=== PATIENT | male | born 1955 | race Two or more races ===

== ENCOUNTER 2017-01-10 21:02 | Inpatient (IN) | payer SELFPAY ==
[~2017-01-10] VITALS: Ht 172.7 cm; Wt 72.6 kg
[2017-01-10 21:23] VITALS: BP 103/62
[2017-01-10 22:12] LABS: ALANINE AMINOTRANSFERASE 8 U/L (3-41); ALBUMIN/GLOBULIN RATIO 1.2 (1.0-2.7); ANION GAP 14 (5-15); ASPARTATE AMINO TRANSFERASE 12 U/L (5-40); CALCIUM 8.9 mg/dL (8.6-10.2); CARBON DIOXIDE 28 mEQ/L (20-30); CHLORIDE 94 mEQ/L (98-107); CREATININE 1.2 mg/dL (0.7-1.2); GLOMERULAR FILTRATION RATE > 60 mL/min (>60); HEMOLYSIS 5; POTASSIUM 4.2 mEQ/L (3.4-4.9); SODIUM 136 mEQ/L (135-145); TOTAL PROTEIN 6.5 g/dL (6.6-8.7); TROPONIN I < 0.30 ng/mL (<=0.30)
[2017-01-10 22:14] LABS: APPEARANCE,URINE CLEAR; BASOPHILS % (AUTO) 0.7 % (0.0-2.0); EOSINOPHILS % (AUTO) 0.8 % (0.0-3.0); KETONES,URINE NEGATIVE (NEGATIVE); LEUKOCYTE ESTERASE ,URINE 1+ (NEGATIVE); LYMPHOCYTES % (AUTO) 13.4 % (20.0-45.0); MEAN CORPUSCULAR HEMOGLOBIN 31.8 PG (27.0-31.0); MEAN CORPUSCULAR HGB CONC 33.9 G/DL (32.0-36.0); MEAN CORPUSCULAR VOLUME 94 FL (80-99); MEAN PLATELET VOLUME 6.1 FL (6.5-10.1); NEUTROPHILS % (AUTO) 79.2 % (45.0-75.0); NITRITE,URINE NEGATIVE (NEGATIVE); PH,URINE 6 (4.5-8.0); PLATELET COUNT 270 K/UL (150-450); PROTEIN,URINE 1+ (NEGATIVE); RED BLOOD COUNT 4.97 M/UL (4.70-6.10); UROBILINOGEN,URINE 4 MG/DL (0.0-1.0); WHITE BLOOD COUNT 13.1 K/UL (4.8-10.8)
[2017-01-10] MEDS ORDERED: Tylenol #3 tab (300mg/30mg) ORAL ONE (22:15)
[2017-01-10 22:22] LABS: CKMB < 1.5 ng/mL (< 6.7)
[2017-01-10 22:25] LABS: AMORPHOUS SEDIMENT,UR FEW /LPF; BACTERIA,URINE FEW /HPF; MUCUS,URINE FEW /LPF (NONE/OCC)
[2017-01-10 22:28] VITALS: BP 117/70
[2017-01-10] MEDS ORDERED: Azithromycin Inj IV ONE (22:36)
[2017-01-10] MEDS ORDERED: Solu-MEDROL 125mg Inj IVP ONE (22:45)
[2017-01-10] MEDS ORDERED: Azithromycin 500 MG in NS 275 ML IV ONE (22:45)
[2017-01-10] MEDS: Ipratropium 0.02% Inh Soln 2.5ml UD HHN SCH ×2 (22:48→22:49)
[2017-01-10] MEDS: Albuterol ud Inhalation HHN SCH ×2 (22:48→22:49)
[2017-01-10 23:00] VITALS: BP 111/68
--- NOTE | 2017-01-10 23:33 | Emergency Room Report ---
History of Present Illness General Chief Complaint: Syncope Source: Patient Present Illness HPI 61YOM + "long time smoker" with 2 weeks of cough and subjective SOB. No history of asthma, COPD. Does not have PMD. Denies fever/chills, myalgias, chest pain. Didnt take any OTC meds. Denies known PMHx or COPD history. Allergies: Coded Allergies: No Known Allergies (Unverified , 01/10/17) Patient History Past Medical History: none Past Surgical History: none Pertinent Family History: none Social History: Reports: smoking Immunizations: UTD Reviewed Nursing Documentation: PMH: Agreed, PSxH: Agreed Nursing Documentation-PMH Past Medical History: No Stated History Physical Exam Vital Signs Date Time Temp Pulse Resp B/P Pulse Ox O2 Delivery O2 Flow Rate FiO2 01/10/17 21:06 79 18 103/62 97 Room Air 01/10/17 21:23 98.7 Sp02 EP Interpretation: reviewed, normal General Appearance: normal inspection, well appearing, alert, GCS 15, non-toxic , mild distress, other - Looks ill, repeatedly coughing Head: normocephalic, atraumatic Eyes: bilateral eye EOMI, bilateral eye PERRL ENT: normal ENT inspection, hearing grossly normal, normal voice Neck: normal inspection, full range of motion, supple, no meningismus, no bony tend Respiratory: normal inspection, lungs clear, normal breath sounds, no respiratory distress, no retraction, no accessory muscle use, speaking full sentences, wheezing Cardiovascular #1: regular rate, rhythm, no edema Gastrointestinal: normal inspection, normal bowel sounds, non tender, soft, no guarding, no hernia Genitourinary: no CVA tenderness Musculoskeletal: normal inspection, back normal, normal range of motion, Lyle' s Sign negative Neurologic: normal inspection, alert, oriented x3, responsive, 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, motor strength/tone normal, speech normal Psychiatric: normal inspection, judgement/insight normal, mood/affect normal Skin: normal inspection, normal color, no rash Lymphatic: normal inspection Medical Decision Making Diagnostic Impression: Primary Impression: Hematuria Additional Impression: COPD with acute exacerbation ER Course 61YOM with 2 weeks cough - Significant pack year history smoker - 2 weeks symptoms - Significant wheezing on exam - Likely new onset COPD exac vs bronchitis - Improved with duonebs, steroids, IV Azithro - CXR does not show acute PNA - Blood Cx pending Endorsed to Dr Romero For tele admit at 1145pm EKG Diagnostic Results Rate: normal Rhythm: NSR ST Segments: no acute changes ASA given to the pt in ED: No Rhythm Strip Diag. Results EP Interpretation: yes Rate: 84 Rhythm: NSR, no PVC's, no ectopy Chest X-Ray Diagnostic Results EP Interpretation: Yes Findings: no consolidation, no effusion, no pneumothorax, no acute cardiopulmonary disease Number of Views: 1 Last Vital Signs Date Time Temp Pulse Resp B/P Pulse Ox O2 Delivery O2 Flow Rate FiO2 01/10/17 23:00 78 28 111/68 100 Room Air 01/10/17 22:27 98.7 Status: improved Disposition: ADMITTED INPATIENT Condition: Serious Referrals: NOT CHOSEN ALYSSA/,REFERRING (PCP) ALFRED BAZAN M.D. January 10, 2017 23:33
[2017-01-11] MEDS ORDERED: DuoNeb 0.5-3(2.5)mg/3ml neb HHN PRN
[2017-01-11] MEDS ORDERED: Promethazine/Codeine 5ml UD ORAL PRN
[2017-01-11] MEDS ORDERED: Ketorolac 30mg Inj IV PRN
[2017-01-11] MEDS ORDERED: Nitroglycerin Subl 0.4mg tab (Bottle Of 25) SL PRN
[2017-01-11] MEDS ORDERED: LORazepam Inj 2mg/ml 1ml IV PRN
[2017-01-11] MEDS ORDERED: Morphine Sulfate 2mg/ml Inj IVP PRN
[2017-01-11] MEDS ORDERED: Zosyn 3.375gm inj ONE (01:45)
[2017-01-11] MEDS: Solu-MEDROL 125mg Inj IV SCH ×4 (02:28→17:24)
[2017-01-11] MEDS: Zoysn 3.37gm in D5W 110ml IVPB SCH ×3 (02:29→16:47)
[2017-01-11 04:00] VITALS: BP 107/58
[2017-01-11] MEDS ORDERED: Piperacillin/Tazobactam 2.25 GM in D5W 55 ML IV SCH (06:00)
[2017-01-11 08:00] VITALS: BP 120/65
[2017-01-11] MEDS: Theophylline ER 100mg ORAL SCH ×2 (09:36→21:28)
[2017-01-11] MEDS: Heparin 5000 units/ml inj SUBQ SCH ×2 (09:37→21:28)
--- NOTE | 2017-01-11 10:58 | Diagnostic Imaging Report ---
Indication: SOB, cough Technique: One view of the chest Comparison: none Findings: There is some atelectasis or scarring at the left lung base. Remaining lungs and pleural spaces are clear. Heart size is normal. Impression: Left basilar atelectasis or scarring. Correlate with clinical findings
--- NOTE | 2017-01-11 11:51 | History and Physical ---
History of Present Illness General Date patient seen: January 11, 2017 Reason for Hospitalization: Syncope Present Illness HPI 61year old male with hx of COPD, smoker, presented with CC of 2 weeks of cough and subjective SOB. Denies fever/chills, myalgias, chest pain. . Denies known PMHx or COPD history. Pt is admitted for SOB and acute exacerbation of COPD, Bronchitis. Allergies: Coded Allergies: No Known Allergies (Unverified , 01/10/17) Patient History Healthcare decision maker pt A&Ox4 Resuscitation status Full Code Advanced Directive on File No Physical Exam General Appearance: WD/WN Lines, tubes and drains: peripheral, endotracheal tube HEENT: normocephalic, atraumatic Respiratory/Chest: crackles/rales Cardiovascular/Chest: normal peripheral pulses, normal rate Genitourinary/Rectal: normal genital exam Last 24 Hour Vital Signs Date Time Temp Pulse Resp B/P Pulse Ox O2 Delivery O2 Flow Rate FiO2 01/11/17 11:31 72 01/11/17 08:00 66 01/11/17 08:00 97.0 95 18 120/65 98 Room Air 01/11/17 07:45 75 18 Room Air 01/11/17 04:00 88 01/11/17 04:00 97.9 83 21 107/58 94 Room Air 01/11/17 00:04 98.7 78 18 111/68 100 Room Air 01/10/17 23:40 96 18 100 Room Air 01/10/17 23:00 78 28 111/68 100 Room Air 01/10/17 22:51 86 18 96 Room Air 01/10/17 22:50 85 18 Room Air 01/10/17 22:28 75 17 117/70 99 Room Air 01/10/17 22:27 98.7 01/10/17 21:23 98.7 79 18 103/62 97 Room Air 01/10/17 21:06 79 18 103/62 97 Room Air Intake and Output 01/10/17 01/11/17 19:00 07:00 Intake Total 585.000 ml Balance 585.000 ml Intake Oral 200 ml IV Total 385.000 ml # Voids 2 Laboratory Tests Test 01/10/17 21:40 White Blood Count 13.1 K/UL (4.8-10.8) H Red Blood Count 4.97 M/UL (4.70-6.10) Hemoglobin 15.8 G/DL (14.2-18.0) Hematocrit 46.5 % (42.0-52.0) Mean Corpuscular Volume 94 FL (80-99) Mean Corpuscular Hemoglobin 31.8 PG (27.0-31.0) H Mean Corpuscular Hemoglobin Concent 33.9 G/DL (32.0-36.0) Red Cell Distribution Width 11.0 % (11.6-14.8) L Platelet Count 270 K/UL (150-450) Mean Platelet Volume 6.1 FL (6.5-10.1) L Neutrophils (%) (Auto) 79.2 % (45.0-75.0) H Lymphocytes (%) (Auto) 13.4 % (20.0-45.0) L Monocytes (%) (Auto) 6.0 % (1.0-10.0) Eosinophils (%) (Auto) 0.8 % (0.0-3.0) Basophils (%) (Auto) 0.7 % (0.0-2.0) Urine Color Yellow Urine Appearance Clear Urine pH 6 (4.5-8.0) Urine Specific Elliott 1.020 (1.005-1.035) Urine Protein 1+ (NEGATIVE) H Urine Glucose (UA) Negative (NEGATIVE) Urine Ketones Negative (NEGATIVE) Urine Occult Blood 2+ (NEGATIVE) H Urine Nitrite Negative (NEGATIVE) Urine Bilirubin Negative (NEGATIVE) Urine Urobilinogen 4 MG/DL (0.0-1.0) H Urine Leukocyte Esterase 1+ (NEGATIVE) H Urine RBC 5-10 /HPF (0 - 0) H Urine WBC 2-4 /HPF (0 - 0) Urine Squamous Epithelial Cells None /LPF (NONE/OCC) Urine Amorphous Sediment Few /LPF (NONE) H Urine Bacteria Few /HPF (NONE) Urine Mucus Few /LPF (NONE/OCC) H Sodium Level 136 mEQ/L (135-145) Potassium Level 4.2 mEQ/L (3.4-4.9) Chloride Level 94 mEQ/L (98-107) L Carbon Dioxide Level 28 mEQ/L (20-30) Anion Gap 14 (5-15) Blood Urea Nitrogen 15 mg/dL (7-23) Creatinine 1.2 mg/dL (0.7-1.2) Estimat Glomerular Filtration Rate > 60 mL/min (>60) Glucose Level 131 mg/dL (74-106) H Calcium Level 8.9 mg/dL (8.6-10.2) Total Bilirubin 0.5 mg/dL (0.0-1.2) Aspartate Amino Transf (AST/SGOT) 12 U/L (5-40) Alanine Aminotransferase (ALT/SGPT) 8 U/L (3-41) Alkaline Phosphatase 61 U/L (40-129) Total Creatine Kinase 65 U/L (38-174) Creatine Kinase MB < 1.5 ng/mL (< 6.7) Creatine Kinase MB Relative Index Troponin I < 0.30 ng/mL (<=0.30) Pro-B-Type Natriuretic Peptide 179 pg/mL (0-125) H Total Protein 6.5 g/dL (6.6-8.7) L Albumin 3.6 g/dL (3.5-5.2) Globulin 2.9 g/dL Albumin/Globulin Ratio 1.2 (1.0-2.7) Urine Opiates Screen Negative (NEGATIVE) Urine Barbiturates Screen Negative (NEGATIVE) Phencyclidine (PCP) Screen Negative (NEGATIVE) Urine Amphetamines Screen Negative (NEGATIVE) Urine Benzodiazepines Screen Negative (NEGATIVE) Urine Cocaine Screen Negative (NEGATIVE) Urine Marijuana (THC) Screen Negative (NEGATIVE) Height (Feet): 5 Height (Inches): 8.00 Weight (Pounds): 160 Medications Current Medications Medications (Trade) Dose Ordered Sig/Steph Route PRN Reason Start Time Stop Time Status Last Admin Dose Admin Albuterol/ Ipratropium (DuoNeb 0.5-3(2.5)mg/3ml) 3 ml Q4H PRN HHN dyspnea 01/11/17 00:00 01/16/17 00:00 Dextrose STAT PRN IV Hypoglycemia 01/11/17 00:00 02/10/17 00:00 Heparin Sodium (Porcine) (Heparin 5000 units/ml) 5,000 units EVERY 12 HOURS SUBQ 01/11/17 09:00 02/10/17 08:59 01/11/17 09:37 Ketorolac Tromethamine (Toradol 30mg) 30 mg Q8H PRN IV moderate pain 4-6 01/11/17 00:00 01/16/17 00:00 Lorazepam (Ativan 2mg/ml 1ml) 0.5 mg Q4H PRN IV For Anxiety 01/11/17 00:00 01/18/17 00:00 Methylprednisolone Sodium Succinate (Solu-MEDROL) 60 mg EVERY 6 HOURS IV 01/11/17 00:00 02/10/17 00:00 01/11/17 11:41 Morphine Sulfate (Morphine Sulfate) 2 mg Q4H PRN IVP severe pain 7-10 01/11/17 00:00 01/18/17 00:00 Nitroglycerin (Ntg) 0.4 mg Q5M X 3 DOSES PRN SL Prn Chest Pain 01/11/17 00:00 02/10/17 00:00 Ondansetron HCl (Zofran) 4 mg Q6H PRN IVP Nausea & Vomiting 01/11/17 00:00 02/10/17 00:00 Piperacillin Sod/ Tazobactam Sod/ Dextrose (Zosyn/D5W) 110 ml @ 27.5 mls/hr Q8H IVPB 01/11/17 00:30 01/18/17 00:29 01/11/17 09:36 Promethazine HCl/ Codeine (Phenergan with Codeine) 5 ml Q6H PRN ORAL cough 01/11/17 00:00 02/10/17 00:00 Temazepam (Restoril) 15 mg HSPRN PRN ORAL Insomnia 01/11/17 00:00 01/18/17 00:00 Theophylline (Adonis-Dur) 100 mg EVERY 12 HOURS ORAL 01/11/17 09:00 02/10/17 08:59 01/11/17 09:36 Assessment/Plan Problem List: (1) COPD with acute exacerbation ICD Codes: J44.1 - Chronic obstructive pulmonary disease with (acute) exacerbation SNOMED: 162267817 Assessment/Plan iv steroids IV antibiotics resiratory treatment TRISH GOMEZ January 11, 2017 11:51
[2017-01-11 12:00] VITALS: BP 105/64
[2017-01-11 16:00] VITALS: BP 100/59
[2017-01-11 20:00] VITALS: BP 115/69
[2017-01-12] VITALS: BP 112/56
[2017-01-12] MEDS: Zoysn 3.37gm in D5W 110ml IVPB SCH (00:29)
[2017-01-12] MEDS: Solu-MEDROL 125mg Inj IV SCH ×2 (00:31→06:10)
[2017-01-12 04:31] VITALS: BP 100/44
[2017-01-12 06:18] LABS: MEAN CORPUSCULAR HEMOGLOBIN 32.8 PG (27.0-31.0); MEAN CORPUSCULAR HGB CONC 35.4 G/DL (32.0-36.0); MEAN CORPUSCULAR VOLUME 93 FL (80-99); MEAN PLATELET VOLUME 6.5 FL (6.5-10.1); PLATELET COUNT 277 K/UL (150-450); RED BLOOD COUNT 4.56 M/UL (4.70-6.10); RED CELL DISTRIBUTION WIDTH 10.8 % (11.6-14.8)
[2017-01-12] MEDS ORDERED: Nitroglycerin Subl 0.4mg tab (Bottle Of 25) SL PRN (06:30)
[2017-01-12 06:33] LABS: ALANINE AMINOTRANSFERASE 9 U/L (3-41); ALBUMIN/GLOBULIN RATIO 1.2 (1.0-2.7); ANION GAP 13 (5-15); ASPARTATE AMINO TRANSFERASE 14 U/L (5-40); CALCIUM 9.4 mg/dL (8.6-10.2); CARBON DIOXIDE 27 mEQ/L (20-30); CHLORIDE 100 mEQ/L (98-107); CREATININE 1.1 mg/dL (0.7-1.2); GLOMERULAR FILTRATION RATE > 60 mL/min (>60); HEMOLYSIS 3; MAGNESIUM 2.1 mg/dL (1.7-2.5); PHOSPHORUS 2.8 mg/dL (2.5-4.8); POTASSIUM 4.8 mEQ/L (3.4-4.9); SODIUM 140 mEQ/L (135-145); TOTAL PROTEIN 6.7 g/dL (6.6-8.7)
[2017-01-12] MEDS ORDERED: DuoNeb 0.5-3(2.5)mg/3ml neb HHN PRN (06:53)
[2017-01-12] MEDS ORDERED: LORazepam Inj 2mg/ml 1ml IV PRN (06:54)
[2017-01-12] MEDS ORDERED: Ketorolac 30mg Inj IV PRN (06:54)
[2017-01-12] MEDS ORDERED: Promethazine/Codeine 5ml UD ORAL PRN (06:55)
[2017-01-12] MEDS ORDERED: Morphine Sulfate 2mg/ml Inj IVP PRN (06:55)
[2017-01-12 08:05] VITALS: BP 95/59
[2017-01-12 08:30] LABS: BAND NEUTROPHILS % (MANUAL) 0 % (0-8); BASOPHILS % (MANUAL) 0 % (0-2); EOSINOPHILS % (MANUAL) 0 % (0-3); LYMPHOCYTES % (MANUAL) 7 % (20-45); NEUTROPHILS % (MANUAL) 92 % (45-75); PLATELET ESTIMATE ADEQUATE; PLATELET MORPHOLOGY NORMAL; TOTAL CELLS COUNTED 100
[2017-01-12] MEDS ORDERED: Piperacillin/Tazobactam 3.375 GM in D5W 110 ML IVPB SCH (08:30)
[2017-01-12] MEDS ORDERED: Theophylline ER 100mg ORAL SCH (09:00)
[2017-01-12] MEDS ORDERED: Heparin 5000 units/ml inj SUBQ SCH (09:00)
[2017-01-12 11:35] VITALS: BP 97/54
[2017-01-12] MEDS ORDERED: Solu-MEDROL 125mg Inj IV SCH (12:00)
--- NOTE | 2017-01-12 14:50 | Pulmonology Progress Note ---
Assessment/Plan Problems: (1) COPD with acute exacerbation Assessment/Plan improivng IV antibiotics IV steroids improving dc home with oral abx and steroids Subjective ROS Limited/Unobtainable: No Interval Events: improving Allergies: Coded Allergies: No Known Allergies (Unverified , 01/10/17) Objective Last 24 Hour Vital Signs Date Time Temp Pulse Resp B/P Pulse Ox O2 Delivery O2 Flow Rate FiO2 01/12/17 11:35 97.2 72 20 97/54 99 Room Air 01/12/17 08:05 98.3 59 23 95/59 96 Room Air 01/12/17 04:31 97.5 62 20 100/44 90 01/12/17 00:00 97.7 71 18 112/56 97 Room Air 21 01/11/17 23:59 76 01/11/17 20:00 97.7 82 16 115/69 94 Room Air 01/11/17 19:55 65 01/11/17 19:30 78 18 Room Air 21 01/11/17 16:00 97.7 68 18 100/59 94 Room Air 01/11/17 16:00 66 Intake and Output 01/11/17 01/12/17 19:00 07:00 Intake Total 171.0 ml 298.8 ml Balance 171.0 ml 298.8 ml Intake Oral 120 ml IV Total 171.0 ml 178.8 ml # Voids 2 General Appearance: WD/WN Respiratory/Chest: chest wall non-tender, lungs clear Cardiovascular: normal peripheral pulses, normal rate Abdomen: soft, non tender, no organomegaly Extremities: no cyanosis, no clubbing Skin: no lesions Microbiology Date/Time Source Procedure Growth Status 01/10/17 23:00 Blood Blood Culture - Preliminary NO GROWTH AFTER 24 HOURS Resulted 01/10/17 22:40 Blood Blood Culture - Preliminary NO GROWTH AFTER 24 HOURS Resulted 01/11/17 10:00 Sputum Gram Stain - Final Resulted 01/11/17 10:00 Sputum Sputum Culture - Preliminary Resulted Laboratory Tests 01/12/17 05:50: White Blood Count 24.0#*H, Red Blood Count 4.56L, Hemoglobin 15.0, Hematocrit 42.2, Mean Corpuscular Volume 93, Mean Corpuscular Hemoglobin 32.8H, Mean Corpuscular Hemoglobin Concent 35.4, Red Cell Distribution Width 10.8L, Platelet Count 277, Mean Platelet Volume 6.5, Neutrophils (%) (Auto) , Lymphocytes (%) (Auto) , Monocytes (%) (Auto) , Eosinophils (%) (Auto) , Basophils (%) (Auto) , Differential Total Cells Counted 100, Neutrophils % ( Manual) 92H, Lymphocytes % (Manual) 7L, Monocytes % (Manual) 1, Eosinophils % ( Manual) 0, Basophils % (Manual) 0, Band Neutrophils 0, Platelet Estimate Adequate, Platelet Morphology Normal, Red Blood Cell Morphology Normal, Sodium Level 140, Potassium Level 4.8, Chloride Level 100, Carbon Dioxide Level 27, Anion Gap 13, Blood Urea Nitrogen 21, Creatinine 1.1, Estimat Glomerular Filtration Rate > 60, Glucose Level 163H, Calcium Level 9.4, Phosphorus Level 2.8, Magnesium Level 2.1, Total Bilirubin < 0.2, Aspartate Amino Transf (AST/ SGOT) 14, Alanine Aminotransferase (ALT/SGPT) 9, Alkaline Phosphatase 68, Total Protein 6.7, Albumin 3.7, Globulin 3.0, Albumin/Globulin Ratio 1.2 Current Medications Medications (Trade) Dose Ordered Sig/Steph Route PRN Reason Start Time Stop Time Status Last Admin Dose Admin Albuterol/ Ipratropium (DuoNeb 0.5-3(2.5)mg/3ml) 3 ml Q4H PRN HHN dyspnea 01/12/17 06:53 01/17/17 06:52 Dextrose (Dextrose 50%) STAT PRN IV Hypoglycemia 01/12/17 06:53 02/11/17 06:52 Heparin Sodium (Porcine) (Heparin 5000 units/ml) 5,000 units EVERY 12 HOURS SUBQ 01/12/17 09:00 02/11/17 08:59 01/12/17 08:33 Ketorolac Tromethamine (Toradol 30mg) 30 mg Q8H PRN IV moderate pain 4-6 01/12/17 06:54 01/17/17 06:53 Lorazepam (Ativan 2mg/ml 1ml) 0.5 mg Q4H PRN IV For Anxiety 01/12/17 06:54 01/19/17 06:53 Methylprednisolone Sodium Succinate (Solu-MEDROL) 60 mg EVERY 6 HOURS IV 01/12/17 12:00 02/11/17 11:59 01/12/17 11:48 Morphine Sulfate (Morphine Sulfate) 2 mg Q4H PRN IVP severe pain 7-10 01/12/17 06:55 01/19/17 06:54 Nitroglycerin (Ntg) 0.4 mg Q5M X 3 DOSES PRN SL Prn Chest Pain 01/12/17 06:30 02/11/17 06:29 Ondansetron HCl (Zofran) 4 mg Q6H PRN IVP Nausea & Vomiting 01/12/17 06:55 02/11/17 06:54 Piperacillin Sod/ Tazobactam Sod/ Dextrose (Zosyn/D5W) 110 ml @ 27.5 mls/hr Q8H IVPB 01/12/17 08:30 01/19/17 08:29 01/12/17 08:31 Promethazine HCl/ Codeine (Phenergan with Codeine) 5 ml Q6H PRN ORAL cough 01/12/17 06:55 02/11/17 06:54 Temazepam (Restoril) 15 mg HSPRN PRN ORAL Insomnia 01/12/17 06:56 01/19/17 06:55 Theophylline (Adonis-Dur) 100 mg EVERY 12 HOURS ORAL 01/12/17 09:00 02/11/17 08:59 01/12/17 08:31 TRISH GOMEZ January 12, 2017 14:50
[2017-01-12 15:37] VITALS: BP 113/60
--- NOTE | 2017-01-12 16:57 | Cardiology Report ---
APPROVED REPORT EKG Measurement Heart [id number] Normal sinus rhythm Normal ECG
--- NOTE | 2017-01-13 14:14 | Discharge Summary ---
Discharge Summary Hospital Course Date of Admission January 10, 2017 at 23:40 Date of Discharge January 12, 2017 at 15:45 Admitting Diagnosis Chronic Obstructive Pulmonary Disease HPI Jeffrey Pineda is a 61 year old male who was admitted on January 10, 2017 at 23:40 for Chronic Obstructive Pulmonary Disease Hospital Course [id number] Discharge Discharge Disposition Patient was discharged to Home (01) Discharge Diagnoses: Svitlana Roe NP Jan 13, 2017 14:14
--- NOTE | 2017-01-14 00:30 | Discharge Summary 2 SIG ---
DATE OF ADMISSION: 01/10/2017 DATE OF DISCHARGE: 01/12/2017 BRIEF HOSPITAL COURSE: The patient is a 61-year-old male, who is a smoker and has COPD, presented with two weeks duration of cough and subjective shortness of breath. The patient has significant pack year of smoking history and had significant wheezing on examination. Chest x-ray done showed left basilar atelectasis. He was admitted for acute COPD exacerbation and acute bronchitis. He was given IV steroids and was started on IV antibiotics with continuous respiratory treatment. Blood culture did not isolate any growth. Sputum Gram-stain showed gram-positive cocci and few gram-negative rods. Advised smoking cessation. The patient was then discharged home with po antibiotics and steroids. FINAL DIAGNOSES: 1. Acute chronic obstructive pulmonary disease exacerbation. 2. Smoker. Niru Romero M.D. I have been assigned to dictate discharge summary on this account and I was not involved in the patient's management. Svitlana Roe N.P. DR: BOLIVAR JOB#: [id number] CC: HUGO
== END 2017-01-12 15:45 | disposition home or self-care (01) | DRG 192 ==
LOC: ENRESERVDT → ENRESERVTM → EMR 21:29 → 2E 23:40 → EDBEDREQ 23:52 → 4E 01-12 06:25
DX: J44.0 Chronic obstructive pulmonary disease with (acute) lower respiratory infection (principal); F17.200 Nicotine dependence, unspecified, uncomplicated; J20.9 Acute bronchitis, unspecified; J44.1 Chronic obstructive pulmonary disease with (acute) exacerbation
CPT/HCPCS: 36415; 71010; 80053; 80300; 81003; 82550; 82553; 82962; 83735; 83880; 84100; 84484; 85007; 85025; 87040; 87070; 87205; 93005; 94640; 94664

== ENCOUNTER 2018-09-07 21:09 | Emergency (ER) | payer SELFPAY ==
[~2018-09-07] VITALS: Ht 170.2 cm; Wt 74.8 kg
[2018-09-07 21:36] VITALS: BP 125/63
--- NOTE | 2018-09-07 21:38 | NUR ---
ER Nurse Note: Pt came from home c/o fever and cough for 2 days. Pt stated this occured 2 days ago; unk cause. 100.0F temp at bedside; cough nonproductive and dry. Inspiratory wheeze heard; unlabored breathing. ERMD at pt side; will continue to montior.
[2018-09-07] MEDS ORDERED: Albuterol ud Inhalation HHN ONE (21:45)
[2018-09-07] MEDS ORDERED: Solu-MEDROL 125mg Inj IVP ONE (21:45)
[2018-09-07] MEDS ORDERED: Sodium Chloride 2,200 ML IVLG ONE (21:45)
[2018-09-07] MEDS ORDERED: Acetaminophen 500mg (ES) tab ORAL ONE (21:45)
[2018-09-07] MEDS ORDERED: Ipratropium 0.02% Inh Soln 2.5ml UD HHN ONE (21:45)
--- NOTE | 2018-09-07 21:50 | Emergency Room Report ---
History of Present Illness General Chief Complaint: Flu Like Symptoms Source: Patient, Family Member, Medical Record Present Illness HPI Is a 62-year-old male with a history of asthma and high blood pressure. He presents with chief complaint of feeling sick with fever and cough. Onset for 2 -1/2 days. Patient with high fever at home. Taking Tylenol for it. He has coughing. Productive of whitish sputum. Worse with inspiration. Unable to smoke the last few days. He has asthma but could not find his inhaler. Has generalized body pain with nausea and one episode vomiting. Denies any other complaint. Worse with movement. Did get his flu shot 2 months ago. Allergies: Coded Allergies: No Known Allergies (Unverified , 09/07/18) Patient History Past Medical History: see triage record, old chart reviewed, HTN, asthma Past Surgical History: other Pertinent Family History: none Social History: Reports: smoking Immunizations: other Reviewed Nursing Documentation: PMH: Agreed; PSxH: Agreed Nursing Documentation-PMH Past Medical History: No History, Except For Hx Cardiac Problems: No Hx Asthma: Yes Hx COPD: Yes Hx Cancer: No Hx Gastrointestinal Problems: No Hx Neurological Problems: No Hx Syncope: Yes Review of Systems Constitutional: Reports: chills, fever Eye: Denies: eye pain, blurred vision ENT: Denies: ear pain, nose congestion, throat swelling Respiratory: Reports: cough, shortness of breath Cardiovascular: Denies: chest pain, palpitations Gastrointestinal: Reports: nausea, vomiting; Denies: abdominal pain, diarrhea Musculoskeletal: Reports: muscle pain; Denies: back pain, joint pain Skin: Denies: rash Neurological: Denies: headache, numbness Endocrine: Denies: increased thirst, increased urine Hematologic/Lymphatic: Denies: easy bruising All Other Systems: negative except mentioned in HPI Physical Exam Vital Signs Date Time Temp Pulse Resp B/P (MAP) Pulse Ox O2 Delivery O2 Flow Rate FiO2 09/07/18 21:15 102.4 87 18 125/63 93 Room Air vitals with fever Sp02 EP Interpretation: reviewed, abnormal General Appearance: well appearing, no apparent distress, alert, other - Ill- appearing Head: normocephalic, atraumatic Eyes: bilateral eye PERRL, bilateral eye EOMI ENT: hearing grossly normal, normal pharynx Neck: full range of motion, supple, no meningismus Respiratory: chest non-tender, decreased breath sounds, accessory muscle use, wheezing Cardiovascular #1: regular rate, rhythm, no murmur Gastrointestinal: normal bowel sounds, non tender, no mass, no organomegaly, no bruit, non-distended Musculoskeletal: back normal, gait/station normal, normal range of motion Neurologic: alert, oriented x3 Psychiatric: mood/affect normal Skin: warm/dry Medical Decision Making Diagnostic Impression: Primary Impression: Influenza-like symptoms Additional Impressions: Atypical pneumonia Asthma exacerbation Qualified Codes: J45.21 - Mild intermittent asthma with (acute) exacerbation ER Course Patient with fever and cough. This is most likely influenza urine though swab was negative. I'm going to treat him because of his history of asthma. Wheezing cleared after that lasted treatment. Cough improved. We'll go ahead and treat with antibiotics also. No evidence of ACS, PE, dissection to name a few. Lab Results Impression labs unremarkable. Rhythm Strip Diag. Results EP Interpretation: yes Rate: 100 Rhythm: NSR, no PVC's, no ectopy Chest X-Ray Diagnostic Results Chest X-Ray Diagnostic Results : Chest X-Ray Ordered: Yes # of Views/Limited/Complete: 1 View Indication: Shortness of Breath EP Interpretation: Yes Interpretation: no effusion, no pneumothorax, no acute cardiopulmonary disease, other - b/l interstitial markings Impression: Other - increased b/l interstitial markings. Electronically Signed by: Jarod Guzman MD Last Vital Signs Date Time Temp Pulse Resp B/P (MAP) Pulse Ox O2 Delivery O2 Flow Rate FiO2 09/07/18 21:36 87 18 Room Air 09/07/18 21:36 100.0 125/63 93 Status: improved Disposition: HOME, SELF-CARE Condition: Stable Scripts Oseltamivir Phosphate (Tamiflu) 75 Mg Capsule 75 MG ORAL TWICE A DAY, #10 CAP Prov: Jarod Guzman MD 09/07/18 Azithromycin* (ZITHROMAX*) 250 Mg Tablet 250 MG ORAL DAILY, #6 TAB 0 Refills Take two tables once daily for 1 day, then one tablet once daily for 4 days. Prov: Jarod Guzman MD 09/07/18 Prednisone* (PREDNISONE*) 20 Mg Tablet 40 MG ORAL DAILY, #10 TAB Prov: Jarod Guzman MD 09/07/18 Ibuprofen* (MOTRIN*) 600 Mg Tablet 600 MG ORAL THREE TIMES A DAY, #30 TAB 0 Refills Prov: Jarod Guzman MD 09/07/18 Albuterol Sulfate* (ALBUTEROL SULFATE MDI*) 8.5 Gm Hfa.aer.ad 2 PUFF INH Q4H PRN for cough/wheezing, #1 EA 0 Refills Prov: Jarod Guzman MD 09/07/18 Jarod Guzman MD Sep 07, 2018 21:50
[2018-09-07 22:12] LABS: BASOPHILS % (AUTO) 0.9 % (0.0-2.0); EOSINOPHILS % (AUTO) 0.6 % (0.0-3.0); HEMATOCRIT 43.4 % (42.0-52.0); HEMOGLOBIN 14.9 G/DL (14.2-18.0); LYMPHOCYTES % (AUTO) 4.3 % (20.0-45.0); MEAN CORPUSCULAR VOLUME 94 FL (80-99); MONOCYTES % (AUTO) 5.9 % (1.0-10.0); NEUTROPHILS % (AUTO) 88.4 % (45.0-75.0); PLATELET COUNT 147 K/UL (150-450); RED BLOOD COUNT 4.62 M/UL (4.70-6.10); RED CELL DISTRIBUTION WIDTH 11.3 % (11.6-14.8); WHITE BLOOD COUNT 6.9 K/UL (4.8-10.8)
[2018-09-07 22:19] LABS: ANION GAP 9 mmol/L (5-15); BLOOD UREA NITROGEN 19 mg/dL (7-18); CALCIUM 8.6 MG/DL (8.5-10.1); CARBON DIOXIDE 25 MMOL/L (21-32); CHLORIDE 105 MMOL/L (98-107); CREATININE 1.3 MG/DL (0.55-1.30); SODIUM 139 MMOL/L (136-145)
[2018-09-07 22:28] LABS: APPEARANCE,URINE CLEAR; BILIRUBIN, URINE NEGATIVE (NEGATIVE); GLUCOSE, URINE (UA) NEGATIVE (NEGATIVE); KETONES,URINE NEGATIVE (NEGATIVE); LEUKOCYTE ESTERASE ,URINE NEGATIVE (NEGATIVE); NITRITE,URINE NEGATIVE (NEGATIVE); PH,URINE 5 (4.5-8.0); PROTEIN,URINE 1+ (NEGATIVE); UROBILINOGEN,URINE NORMAL MG/DL (0.0-1.0)
[2018-09-07 22:29] LABS: COLOR,URINE YELLOW
[2018-09-07 22:33] LABS: ALANINE AMINOTRANSFERASE 22 U/L (12-78); ALBUMIN 3.8 G/DL (3.4-5.0); ALBUMIN/GLOBULIN RATIO 1.4 (1.0-2.7); ALKALINE PHOSPHATASE 52 U/L (46-116); ASPARTATE AMINO TRANSFERASE 23 U/L (15-37); BILIRUBIN,TOTAL 0.3 MG/DL (0.2-1.0); CREATINE KINASE 185 U/L (26-308)
--- NOTE | 2018-09-07 23:00 | NUR ---
ER Nurse Note: Pt fever of 100.0F. Ice packs provided and cooling measures met; ERMD aware. Pt is currently asleep, calm and cooperative. VSS, no signs of distress. All orders completed; fluids are being infused; tolerating well. Will continue to montior.
[2018-09-07] MEDS ORDERED: cefTRIAXone 1 GM in NS 55 ML IVPB ONE (23:15)
[2018-09-07] MEDS ORDERED: TAMIFLU75 MG ORAL (23:57)
[2018-09-07] MEDS ORDERED: IBUPROFEN600 MG ORAL (23:57)
[2018-09-07] MEDS ORDERED: ZITHROMAX250 MG ORAL (23:57)
[2018-09-07] MEDS ORDERED: ALBUTEROL SULF8.5 GM INH (23:57)
[2018-09-07] MEDS ORDERED: PREDNISONE20 MG ORAL (23:57)
[2018-09-08 00:15] VITALS: BP 122/60
--- NOTE | 2018-09-08 00:15 | NUR ---
ER Nurse Note: Pt seen, treated, medically cleared by ERMD for discharge. Discharge instructions and prescriptions given with repeat verbailzation by pt and family. Instructed pt to follow up with primary care physican within one week. Pt a&ox4, VSS, no signs of distress. IV discontinued; site clean and bandaged. ID band removed. Pt left with all belongings via own transportation with steady gait.
--- NOTE | 2018-09-08 10:52 | Diagnostic Imaging Report ---
Indication: Shortness of breath Technique: One view of the chest Comparison: 01/01/2017 Findings: No acute infiltrates, effusions, or congestion. Tortuous calcified aorta. Normal heart size. Upper mediastinum unremarkable. Impression: No acute process.
== END 2018-09-08 00:15 | disposition home or self-care (01) ==
LOC: EMR 23:36
DX: J11.1 Influenza due to unidentified influenza virus with other respiratory manifestations (principal); J18.9 Pneumonia, unspecified organism; J45.21 Mild intermittent asthma with (acute) exacerbation; F17.200 Nicotine dependence, unspecified, uncomplicated
CPT/HCPCS: 36415; 71045; 80053; 81003; 82550; 82553; 83605; 84484; 85025; 86710; 87040; 94640; 94664; 96361; 96365; 96375; 99284; J0696; J2930